=== PATIENT | female | born 1930 | race Caucasian/White ===

== ENCOUNTER → 2016-06-30 | Outpatient (CLI) | payer OTHER ==
[~2016-06-30] MED LIST: ASPCH81X PO; BENZ100C7 PO; CYAN100020 PO; DONE10TA12 PO; FURO-85 PO; GFNSR600 PO; HYDR-5688 PO; LEVO1TAB35 PO; LEVO88TA3 PO; PRD20 PO
[2016-06-30 12:41] LABS: HEMATOCRIT 43.9 % (37-47); MEAN CORPUSCULAR HEMOGLOBIN 30.9 pg (25-34); MEAN CORPUSCULAR HGB CONC 33.3 g/dl (32-36); MEAN PLATELET VOLUME 10.1 fL (7.4-10.4); PLATELET COUNT 297 K/uL (130-400); RED BLOOD COUNT 4.72 M/uL (4.2-5.4); WHITE BLOOD COUNT 15.45 K/uL (4.8-10.8)
[2016-06-30 12:59] LABS: ALT/SGPT 18 U/L (12-78); BLOOD UREA NITROGEN 15 mg/dl (7-18); BUN/CREATININE RATIO 19.4 (10-20); CALCIUM 9.5 mg/dl (8.5-10.1); CARBON DIOXIDE 30 mmol/L (21-32); CHLORIDE 107 mmol/L (98-107); CHOLESTEROL 217 mg/dl (0-200); CREATININE 0.79 mg/dl (0.60-1.20); GLUCOSE 89 mg/dl (70-99); POTASSIUM 4.3 mmol/L (3.5-5.1); SODIUM 142 mmol/L (136-145); TRIGLYCERIDES 107 mg/dl (0-150); VERY LOW DENSITY LIPOPROT CALC 21 mg/dl
[2016-06-30 13:10] LABS: ALB/GLOB RATIO 1.2 (0.9-2); ALKALINE PHOSPHATASE 85 U/L (45-117); AST/SGOT 19 U/L (15-37); CHOLESTEROL/HDL RATIO 3.6; HDL CHOLESTEROL 60 mg/dl; LDL CHOLESTEROL CALCULATED 136 mg/dl
[2016-06-30 14:10] LABS: BASO % 0.3 %; BASO ABS # 0.05 K/uL (0-0.2); COMPLETE YES; IG% 0.1 %; LYMPH % 65.1 %; LYMPH ABS # 10.06 K/uL (1.2-3.4); MONO % 4.9 %; NEUT % 27.6 %; SMUDGE CELLS PRESENT
== END | disposition home or self-care (01) ==
LOC: C.LABBFT 09:09
PROVIDERS: ATTEND Internal Medicine
DX: E53.8 Deficiency of other specified B group vitamins (principal); E78.5 Hyperlipidemia, unspecified; E03.9 Hypothyroidism, unspecified

== ENCOUNTER 2016-07-29 09:34 | Inpatient (IN) | payer OTHER ==
[~2016-07-29] VITALS: Ht 160 cm; Wt 71.2 kg
[~2016-07-29 09:34] MED LIST changes: -BENZ100C7 PO; -GFNSR600 PO; -LEVO1TAB35 PO; -PRD20 PO
[2016-07-29] MEDS ORDERED: ALBUT/IPRATROP 3MG/0.5MG NEB 3 ML VIAL INH STA (10:10)
[2016-07-29] MEDS ORDERED: METHYLPREDNISOLONE 125 MG VIAL IV STA (10:10)
[2016-07-29] MEDS ORDERED: LEVAQUIN 750MG / 150ML D5W IV STA (10:13)
[2016-07-29] MEDS ORDERED: SODIUM CHLORIDE 0.9% 1000ML 1,000 ML IV STA (10:13)
--- NOTE | 2016-07-29 10:24 | EMERGENCY ROOM VISIT NOTE ---
History Report prepared by Lexi: Emily York Under the Supervision of: Dr. Alba Bruno M.D. First contact with patient: 09:58 Chief Complaint: SHORTNESS OF BREATH Stated Complaint: SOB, COUGH, WEAKNESS Nursing Triage Summary: Pt son states patient has SOB, coughing, weakness and that pt had pneumonia recently. Cold started 1 1/2 weeks ago, but symptoms getting worse since Tuesday. History of Present Illness The patient is an 86 year old female who presents to the Emergency Room with complaints of persistent SOB starting 2 days ago. She has a cold 1.5 weeks ago which got better. Two days ago she began coughing and having SOB. She denies any fever. Her was sick with pneumonia last week. She does not wear oxygen at home. She denies any history of smoking. Source of History: patient Onset: 2 days ago Position: other (respiratory) Quality: other (SOB) Timing: other (persistent) Associated Symptoms: + cough, No fevers Review of Systems See HPI for pertinent positives & negatives. A total of 10 systems reviewed and were otherwise negative. Past Medical & Surgical Medical Problems: (1) Acute respiratory failure with hypoxia (2) Chronic lymphoid leukemia, disease Family History Non contributory secondary to age. Social History Smoking Status: Never Smoker Marital Status: Housing Status: lives with significant other Occupation Status: retired Current/Historical Medications Scheduled Aspirin (Aspirin Chewable), 81 MG PO HS Donepezil Hydrochloride (Aricept), 10 MG PO HS Furosemide (Lasix), 20 MG PO DAILY AFTER LUNCH Levothyroxine Sodium (Levothyroxine Sodium), 1 TAB PO QAM Scheduled PRN Hydrocodone/Acetaminophen 5MG/325MG ([place] 5MG/325MG), 1-2 TABLET PO q 6 hrs PRN for Pain Allergies Coded Allergies: NO KNOWN DRUG ALLERGIES (Verified Allergy, Unknown, , 07/29/16) Adhesives (Verified Adverse Reaction, Mild, SORE, 07/29/16) Physical Exam Vital Signs Date Time Temp Pulse Resp B/P Pulse Ox O2 Delivery O2 Flow Rate FiO2 07/29/16 11:00 96 21 130/54 96 Room Air 07/29/16 10:35 87 23 120/61 95 Nasal Cannula 3.0 07/29/16 09:59 90 07/29/16 09:52 Nasal Cannula 3.0 07/29/16 09:49 89 Room Air 07/29/16 09:49 82 24 115/78 98 Nasal Cannula 3.0 07/29/16 09:42 93 Room Air 07/29/16 09:39 36.9 93 18 122/72 93 Room Air Physical Exam Vital signs reviewed. General: Chronically ill-appearing, elderly, in no significant distress. HEENT: No scleral icterus, PERRLA, neck supple. Atraumatic. Cardiovascular: Regular rate and rhythm, no extra sounds. Pulmonary: Wheezing in both lung chang, crackles at bases, increased work of breathing, hypoxic, on nasal cannula, moist cough. Abdomen: Soft, nontender, nondistended, positive bowel sounds. Musculoskeletal: Atraumatic, no peripheral edema. Neurologic: Patient awake alert and oriented x 3, full strength in all 4 extremities. Cranial nerves 2 through 12 grossly intact. Skin: Warm, dry, no rash Medical Decision & Procedures ER Provider Diagnostic Interpretation: X-ray results as stated below per interpretation by me and the radiologist: SINGLE VIEW CHEST CLINICAL HISTORY: Wheezing. Pneumonia. FINDINGS: An AP, portable, upright chest radiograph is compared to study dated 01/24/2014 and correlated with chest CT dated 11/01/2012. The examination is degraded by portable technique, apical lordotic positioning, and patient rotation. The heart is enlarged and there is atherosclerotic calcification of the thoracic aorta. The pulmonary vasculature is noncongested. Chronic interstitial thickening is similar to previous. Patchy airspace consolidation is seen at the left lung base. There is no large pleural effusion. No pneumothorax is seen. The skeletal structures are osteopenic. Degenerative change is noted throughout the thoracic spine. Calcific tendinopathy is seen in both shoulders. A tiny linear metallic foreign body/clip is noted in the left axillary region. IMPRESSION: 1. There is patchy airspace consolidation at the left lung base. Cortical clinically for evidence of pneumonia/aspiration pneumonitis. Radiographic follow-up to resolution is recommended. 2. Cardiomegaly without radiographic evidence of congestive failure. Electronically signed by: Patel Rose M.D. 07/29/2016 10:31 AM Dictated Date/Time: 07/29/2016 10:29 AM Laboratory Results Test 07/29/16 10:00 07/29/16 10:23 07/29/16 10:32 07/29/16 11:00 Prothrombin Time 13.5 SECONDS (9.0-12.0) Prothromb Time International Ratio 1.3 (0.9-1.1) Activated Partial Thromboplast Time 34.8 SECONDS (21.0-31.0) Partial Thromboplastin Ratio 1.3 Total Bilirubin 0.8 mg/dl (0.2-1) Direct Bilirubin 0.1 mg/dl (0-0.2) Aspartate Amino Transf (AST/SGOT) 41 U/L (15-37) Alanine Aminotransferase (ALT/SGPT) 25 U/L (12-78) Alkaline Phosphatase 84 U/L (45-117) Total Protein 7.1 gm/dl (6.4-8.2) Albumin 3.4 gm/dl (3.4-5.0) Bedside Troponin I 0.110 ng/ml (0-0.045) Bedside Lactic Acid Venous 1.76 mmol/L (0.90-1.70) Influenza Type A (RT-PCR) Neg for Influ A (NEG) Influenza Type A Antigen Neg for Influ A (NEG) Influenza Type B Antigen Neg for Influ B (NEG) Influenza Type B (RT-PCR) Neg for Influ B (NEG) Laboratory results per my review. Medications Administered Medications (Trade) Dose Ordered Sig/Raoul Route Start Time Stop Time Status Last Admin Dose Admin Albuterol/ Ipratropium (Duoneb) 3 ml NOW STAT INH 07/29/16 10:10 07/29/16 10:13 DC 07/29/16 10:36 3 ML Methylprednisolone Sodium Succinate (Solu-Medrol IV) 125 mg NOW STAT IV 07/29/16 10:10 07/29/16 10:13 DC 07/29/16 10:37 125 MG Levofloxacin 750 mg 750 mg NOW STAT IV 07/29/16 10:13 07/29/16 10:14 DC 07/29/16 10:37 750 MG Sodium Chloride (Nss 1000ml) 1,000 ml @ 125 mls/hr Q8H STAT IV 07/29/16 10:13 07/29/16 15:29 DC 07/29/16 10:37 125 MLS/HR Piperacillin Sod/ Tazobactam Sod (Zosyn Iv) 4.5 gm NOW STAT IV 07/29/16 10:52 07/29/16 10:53 DC 07/29/16 11:19 4.5 GM Aspirin (Aspirin Chew) 324 mg NOW STAT PO 07/29/16 10:53 07/29/16 10:54 DC 07/29/16 11:12 324 MG But he can figure that out ECG Indication: SOB/dyspnea Rate (beats per minute): 86 Rhythm: normal sinus Findings: no acute ischemic change, left axis deviation, no ectopy ED Course 1008: Past medical records reviewed. The patient was evaluated in room B8. A complete history and physical examination was performed. 1010: Solu-Medrol IV 125 mg IV, Duoneb 3 ml INH. 1013: NSS 1000 ml @ 125 mls/hr IV, Levofloxacin 750 mg IV. 1052: Zosyn Iv 4.5 gm IV. 1053: Aspirin 324 mg PO. 1102: I reviewed the patient's case with Dr. Whatley, [facility] hospitalist. He will evaluate the patient for further management. 1110: Upon reevaluation, the patient is resting comfortably. I discussed laboratory and radiographic results with her. She verbalized agreement of the treatment plan. I spoke with Dr. Whatley of the [facility] Hospitalist Service. The patient will be evaluated for further management and care. Medical Decision Differential diagnosis: Etiologies such as infections, reactive airway disease, pneumonia, pneumothorax , COPD, CHF, cardiac ischemia, pulmonary embolism, musculoskeletal, gastrointestinal, as well as others were entertained. This patient was evaluated and appeared to be in no significant distress. IV access was obtained and laboratory work was drawn. Patient was placed on the cardiac technologist, given a DuoNeb treatment. Patient's laboratory work reveals a marked leukocytosis, elevated troponin. Patient's EKG reveals no acute ischemic change. Blood cultures were obtained and the patient was given IV Levaquin, IV Zosyn. Patient was given IV Solu-Medrol. Patient had some improvement in her symptoms and will be evaluated by the hospitalist service for further management. Consults Time Called: 1053 Consulting Physician: Dr. Whatley, [facility] hospitalist Returned Call: [phone] I reviewed the patient's case with him. He will evaluate the patient for further management. Impression Primary Impression: Pneumonia Additional Impressions: Hypoxia Elevated troponin Scribe Attestation The scribe's documentation has been prepared under my direction and personally reviewed by me in its entirety. I confirm that the note above accurately reflects all work, treatment, procedures, and medical decision making performed by me. Departure Information Dispostion Being Evaluated By Hospitalist Referrals Georgi Gregory M.D. (PCP) Patient Instructions [facility] Problem Qualifiers
[2016-07-29 10:28] LABS: HEMATOCRIT 45.3 % (37-47); MEAN CELL VOLUME 92.8 fL (80-100); MEAN CORPUSCULAR HEMOGLOBIN 31.6 pg (25-34); MEAN PLATELET VOLUME 10.1 fL (7.4-10.4); PLATELET COUNT 226 K/uL (130-400); RED BLOOD COUNT 4.88 M/uL (4.2-5.4); WHITE BLOOD COUNT 25.63 K/uL (4.8-10.8)
--- NOTE | 2016-07-29 10:32 | DIAGNOSTIC IMAGING REPORT ---
SINGLE VIEW CHEST CLINICAL HISTORY: Wheezing. Pneumonia. FINDINGS: An AP, portable, upright chest radiograph is compared to study dated 01/24/2014 and correlated with chest CT dated 11/01/2012. The examination is degraded by portable technique, apical lordotic positioning, and patient rotation. The heart is enlarged and there is atherosclerotic calcification of the thoracic aorta. The pulmonary vasculature is noncongested. Chronic interstitial thickening is similar to previous. Patchy airspace consolidation is seen at the left lung base. There is no large pleural effusion. No pneumothorax is seen. The skeletal structures are osteopenic. Degenerative change is noted throughout the thoracic spine. Calcific tendinopathy is seen in both shoulders. A tiny linear metallic foreign body/clip is noted in the left axillary region. IMPRESSION: 1. There is patchy airspace consolidation at the left lung base. Cortical clinically for evidence of pneumonia/aspiration pneumonitis. Radiographic follow-up to resolution is recommended. 2. Cardiomegaly without radiographic evidence of congestive failure. Electronically signed by: Patel Rose M.D. 07/29/2016 10:31 AM Dictated Date/Time: 07/29/2016 10:29 AM
[2016-07-29 10:48] LABS: ALT/SGPT 25 U/L (12-78); BLOOD UREA NITROGEN 19 mg/dl (7-18); BUN/CREATININE RATIO 18.6 (10-20); CARBON DIOXIDE 27 mmol/L (21-32); CHLORIDE 103 mmol/L (98-107); GLUCOSE 140 mg/dl (70-99); SODIUM 139 mmol/L (136-145)
[2016-07-29 10:51] LABS: ALKALINE PHOSPHATASE 84 U/L (45-117); AST/SGOT 41 U/L (15-37); CALCIUM 9.3 mg/dl (8.5-10.1)
[2016-07-29] MEDS ORDERED: PIPERACILLIN/TAZOBACTAM 4.5 GM/100ML D5W IV STA (10:52)
[2016-07-29] MEDS ORDERED: ASPIRIN 81 MG CHEW PO STA (10:53)
[2016-07-29 10:57] LABS: BASO % 0.2 %; BASO ABS # 0.04 K/uL (0-0.2); COMPLETE YES; IG% 0.6 %; LYMPH % 27.2 %; LYMPH ABS # 6.98 K/uL (1.2-3.4); MONO % 5.9 %; NEUT % 66.1 %
--- NOTE | 2016-07-29 11:40 | History and Physical ---
History & Physical Date & Time of Service: Jul 29, 2016 at 11:13 Chief Complaint: Sob, Cough, Weakness Primary Care Physician: Georgi Gregory M.D. History of Present Illness Source: patient, family 86yo female with h/o CLL, mild dementia, and acquired hypothyroidism s/p thyroidectomy who presents with 1-2 weeks of URI symptoms followed by the development of dyspnea in the last 48 hours. was recently sick with pneumonia and required hospitalization at [facility] last weekend. Her cough is only occasionally productive of yellow sputum. She says multiple times during the visit "I'm just so weak." Has had nausea in the last 24 hours along with poor appetite for several days. She denies any h/o asthma, COPD, or other chronic lung disease. Denies any h/o dysphagia. In the ER she received IV zosyn and levaquin for a LLL pneumonia. Also received IV solumedrol 125mg x 1 along with duoneb x 1. Past Medical/Surgical History PMH: 1. acquired hypothyroidism 2. CLL 3. dementia PSH: 1. hysterectomy 2. thyroidectomy 3. lumpectomy for breast cancer 4. hip replacement - left Family History mother - of thyroid disease in her 40s father - "martinez" - in his 70s (thus, CHF? 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)) Immunizations History of Influenza Vaccine: Yes History of Tetanus Vaccine?: Yes History of Pneumococcal: Yes History of Hepatitis B Vaccine: No Multi-Drug Resistant Organisms History of MDRO: No Allergies Coded Allergies: NO KNOWN DRUG ALLERGIES (Verified Allergy, Unknown, , 07/29/16) Adhesives (Unverified Adverse Reaction, Mild, SORE, 07/29/16) Home Medications Scheduled Aspirin (Aspirin Chewable), 81 MG PO HS Donepezil Hydrochloride (Aricept), 10 MG PO HS Furosemide (Lasix), 20 MG PO DAILY AFTER LUNCH Levothyroxine Sodium (Levothyroxine Sodium), 1 TAB PO QAM Scheduled PRN Hydrocodone/Acetaminophen 5MG/325MG ([place] 5MG/325MG), 1-2 TABLET PO q 6 hrs PRN for Pain Review of Systems Constitutional: + fatigue, + weakness, No chills, No fever, No weight loss Eyes: No discharge ENT: + nasal symptoms, No sore throat, No trouble swallowing Respiratory: + cough, + dyspnea at rest, + dyspnea on exertion, + shortness of breath, + sputum, + wheezing, No hemoptysis Cardiovascular: No chest pain, No edema, No orthopnea Abdomen: + nausea, No GI bleeding, No constipation, No diarrhea, No pain, No vomiting Musculoskeletal: No muscle pain Genitourinary - Female: No dysuria Neurologic: + memory loss, No balance problems Psychiatric: No anxiety, No depression symptoms Endocrine: + fatigue Hematologic / Lymphatic: No abnormal bleeding/bruising Integumentary: No rash Physical Exam Vital Signs Date Time Temp Pulse Resp B/P Pulse Ox O2 Delivery O2 Flow Rate FiO2 07/29/16 10:35 87 23 120/61 95 Nasal Cannula 3.0 07/29/16 09:59 90 07/29/16 09:52 Nasal Cannula 3.0 07/29/16 09:49 89 Room Air 07/29/16 09:49 82 24 115/78 98 Nasal Cannula 3.0 07/29/16 09:42 93 Room Air 07/29/16 09:39 36.9 93 18 122/72 93 Room Air General Appearance: no apparent distress, + thin, + pertinent finding (coughing ) Head: normocephalic, atraumatic Eyes: normal inspection, PERRL (pupils 1-2mm b/l ) ENT: + pharyngeal erythema, + pertinent finding (moist mucous membranes) Neck: supple, no adenopathy, + JVD (about 6-8cm), + pertinent finding (thyroid ectomy scar anterior neck) Respiratory/Chest: no respiratory distress, no accessory muscle use, + crackles (fine, both bases but especially left base), + wheezing Cardiovascular: regular rate, rhythm, no gallop, no murmur, normal peripheral pulses Abdomen/GI: normal bowel sounds, non tender, soft, no organomegaly Back: normal inspection Extremities/Musculoskelatal: no pedal edema Neurologic/Psych: no motor/sensory deficits, alert, normal reflexes, oriented x 3 Skin: no rash Lymphatic: no adenopathy (no cervical LAD) Diagnostics Laboratory Results Results Past 24 Hours Test 07/29/16 10:00 07/29/16 10:23 07/29/16 10:32 07/29/16 11:00 Range/Units White Blood Count 25.63 4.8-10.8 K/uL Red Blood Count 4.88 4.2-5.4 M/uL Hemoglobin 15.4 12.0-16.0 g/dL Hematocrit 45.3 37-47 % Mean Corpuscular Volume 92.8 80-100 fL Mean Corpuscular Hemoglobin 31.6 25-34 pg Mean Corpuscular Hemoglobin Concent 34.0 32-36 g/dl Platelet Count 226 130-400 K/uL Mean Platelet Volume 10.1 7.4-10.4 fL Neutrophils (%) (Auto) 66.1 % Lymphocytes (%) (Auto) 27.2 % Monocytes (%) (Auto) 5.9 % Eosinophils (%) (Auto) 0.0 % Basophils (%) (Auto) 0.2 % Neutrophils # (Auto) 16.95 1.4-6.5 K/uL Lymphocytes # (Auto) 6.98 1.2-3.4 K/uL Monocytes # (Auto) 1.50 0.11-0.59 K/uL Eosinophils # (Auto) 0.01 0-0.5 K/uL Basophils # (Auto) 0.04 0-0.2 K/uL RDW Standard Deviation 48.0 36.4-46.3 fL RDW Coefficient of Variation 14.1 11.5-14.5 % Immature Granulocyte % (Auto) 0.6 % Immature Granulocyte # (Auto) 0.15 0.00-0.02 K/uL Sodium Level 139 136-145 mmol/L Potassium Level 4.0 3.5-5.1 mmol/L Chloride Level 103 98-107 mmol/L Carbon Dioxide Level 27 21-32 mmol/L Anion Gap 9.0 3-11 mmol/L Blood Urea Nitrogen 19 7-18 mg/dl Creatinine 1.00 0.60-1.20 mg/dl Estimated GFR () 59.1 Estimated GFR (Non- 51.0 BUN/Creatinine Ratio 18.6 10-20 Random Glucose 140 70-99 mg/dl Calcium Level 9.3 8.5-10.1 mg/dl Magnesium Level 2.0 1.8-2.4 mg/dl Total Bilirubin 0.8 0.2-1 mg/dl Direct Bilirubin 0.1 0-0.2 mg/dl Aspartate Amino Transf (AST/SGOT) 41 15-37 U/L Alanine Aminotransferase (ALT/SGPT) 25 12-78 U/L Alkaline Phosphatase 84 45-117 U/L Total Protein 7.1 6.4-8.2 gm/dl Albumin 3.4 3.4-5.0 gm/dl Bedside Troponin I 0.110 0-0.045 ng/ml Bedside Lactic Acid Venous 1.76 0.90-1.70 mmol/L Microbiology Results 07/29/16 Blood Culture, Received Pending 07/29/16 Blood Culture, Amada Batch Pending 07/29/16 Blood Culture, Amada Batch Pending 07/29/16 Blood Culture, Received Pending Diagnostic Radiology Chest x-ray: IMPRESSION: 1. There is patchy airspace consolidation at the left lung base. Cortical clinically for evidence of pneumonia/aspiration pneumonitis. Radiographic follow-up to resolution is recommended. 2. Cardiomegaly without radiographic evidence of congestive failure. EKG EKG - NSR, left axis deviation, no ST changes (my reading) Impression Assessment and Plan 86yo female with acute hypoxic respiratory failure 2nd to acute bronchitis and LLL pneumonia. 1. LLL community-acquired pneumonia - both she and her became ill about the same time last week. She has not been hospitalized in the last 3 months. Will treat this as LLL CAP with levaquin IV. Follow blood cultures. If any worsening or failure to improve then broaden the coverage for gram negatives, etc. NO history of dysphagia to suggest aspiration and thus defer on coverage for anaerobes at this time. 2. acute bronchitis - will cont IV steroids with solu-medrol 40mg q12h. Duonebs q6h. Incentive spirometry. Mucinex. O2 as needed. 3. JVD on physical exam - despite the JVD she otherwise does not appear volume- overloaded. CXR also w/o pulmonary edema. Last echo was in the clinic in 2013 showing EF 55-60%, grade 2 diastolic dysfunction, and moderate pulmonary HTN. She received IVF in the ER. Will defer on additional fluids at this time. Watch volume status carefully and institute IV lasix in hugo of her normal PO lasix if necessary. 4. hypothyroidism - TSH last month was normal/compensated. Cont same dose of synthroid for now. 5. dementia - cont aricept. She may develop hospital psychosis/encephalopathy while here; follow carefully for such. 6. CLL - a review of her CBCs going back several years shows that her baseline WBC count is typically in the mid-teens. The acute elevation is likely from # 1. Repeat CBC in am for stability. She has never needed treatment to date for the CLL. 7. DVT proph - heparin BID. 8. +troponin - likely myocardial demand ischemia in the setting of #1 above. Doubt true ACS. EKG w/o ischemic changes, and she has had no ischemic symptoms at home. Serial troponins for stability. Place on telemetry. 9. PT, OT consults. 10. modestly elevated AST - simply repeat in 48 hours. family updated at bedside code status - level 1 full code; however, she would not want prolonged intubation/mech ventilation/etc Level of Care Telemetry Advanced Directives Existing Advance Directive: No Existing Living Will: No Resuscitation Status FULL RESUSCITATION VTE Prophylaxis Risk Level: Moderate Given or contraindicated: Unfractionated heparin SQ Note total time about 60 minutes Additional Copies To Georgi Gregory M.D.
[2016-07-29] MEDS ORDERED: ONDANSETRON INJ 2 MG/ML 2 ML VIAL IV PRN (11:45)
[2016-07-29] MEDS ORDERED: MAGNESIUM HYDROXIDE SUSP 30 ML UDC PO PRN (11:45)
[2016-07-29] MEDS ORDERED: ALUMINUM/MAGNESIUM/SIMETH (MAALOX MAX) 30 ML UDC PO PRN (11:45)
[2016-07-29] MEDS ORDERED: POLYETHYLENE (MIRALAX) 17 GM PACK PO PRN (11:45)
[2016-07-29] MEDS ORDERED: ACETAMINOPHEN 325 MG TAB PO PRN (11:45)
[2016-07-29 13:27] LABS: INFLUENZA A PCR Neg for Influ A (NEG); INFLUENZA B PCR Neg for Influ B (NEG)
[2016-07-29 14:44] LABS: INR 1.3 (0.9-1.1); PARTIAL THROMBOPLASTIN RATIO 1.3; PROTHROMBIN TIME (PATIENT) 13.5 SECONDS (9.0-12.0)
[2016-07-29] MEDS ORDERED: PATIENT'S HEIGHT AND/OR WEIGHT NEEDED SCH (15:00)
[2016-07-29 15:04] VITALS: BP 150/74; PULSE 91; TEMP 36.7; O2SAT 96
[2016-07-29 15:05] VITALS: O2SAT 96
[2016-07-29 15:09] VITALS: BP 150/74; PULSE 91; TEMP 36.7; BMI 40.8
[2016-07-29 15:27] VITALS: Ht 160 cm; Wt 71.2 kg
[2016-07-29] MEDS ORDERED: LEVOFLOXACIN CONSULT ACTIVE PRN (16:00)
[2016-07-29] MEDS ORDERED: FUROSEMIDE 20 MG TAB PO SCH (16:00)
[2016-07-29] MEDS: GUAIFENESIN 600 MG TABCR PO SCH ×2 (16:02→20:28)
[2016-07-29 19:29] VITALS: PULSE 79; O2SAT 92
[2016-07-29] MEDS: ALBUT/IPRATROP 3MG/0.5MG NEB 3 ML VIAL INH SCH ×2 (19:29→23:35)
[2016-07-29 20:03] VITALS: BP 116/67; PULSE 77; TEMP 36.5; O2SAT 98
[2016-07-29] MEDS: BENZONATATE 100MG CAP PO SCH (20:28)
[2016-07-29] MEDS: DONEPEZIL HCL 10 MG TAB PO SCH (20:28)
[2016-07-29] MEDS: METHYLPREDNISOLONE IV 40 MG in SYRINGE 0 ML IV SCH (20:30)
[2016-07-29] MEDS: HEPARIN SOD 5000 UNIT/0.5 ML CARP SQ SCH (20:30)
[2016-07-29 23:36] VITALS: PULSE 77; O2SAT 98
[2016-07-30] VITALS (14 sets, daily range): BP systolic 108–124; BP diastolic 55–70; PULSE 66–173; TEMP 36.4–36.9; O2SAT 92–100
[2016-07-30] MEDS: LEVOTHYROXINE 88 MCG TAB PO SCH (06:02)
[2016-07-30] MEDS: ALBUT/IPRATROP 3MG/0.5MG NEB 3 ML VIAL INH SCH ×2 (07:29→11:19)
[2016-07-30 07:48] LABS: HEMATOCRIT 40.4 % (37-47); MEAN CELL VOLUME 91.4 fL (80-100); MEAN CORPUSCULAR HEMOGLOBIN 31.4 pg (25-34); MEAN CORPUSCULAR HGB CONC 34.4 g/dl (32-36); MEAN PLATELET VOLUME 10.5 fL (7.4-10.4); PLATELET COUNT 194 K/uL (130-400); RED BLOOD COUNT 4.42 M/uL (4.2-5.4); WHITE BLOOD COUNT 24.72 K/uL (4.8-10.8)
[2016-07-30] MEDS: FUROSEMIDE 20 MG TAB PO SCH (08:20)
[2016-07-30] MEDS: BENZONATATE 100MG CAP PO SCH ×3 (08:20→21:26)
[2016-07-30] MEDS: GUAIFENESIN 600 MG TABCR PO SCH ×2 (08:21→21:26)
[2016-07-30] MEDS: HEPARIN SOD 5000 UNIT/0.5 ML CARP SQ SCH ×2 (08:23→21:27)
[2016-07-30 08:35] LABS: BUN/CREATININE RATIO 23.7 (10-20); CREATININE 0.87 mg/dl (0.60-1.20); POTASSIUM 3.4 mmol/L (3.5-5.1)
[2016-07-30 08:50] LABS: CALCIUM 9.8 mg/dl (8.5-10.1)
[2016-07-30 09:44] LABS: BASO ABS # 0.01 K/uL (0-0.2); COMPLETE YES; ECHINOCYTES 1+; IG% 0.2 %; LYMPH % 32.2 %; LYMPH ABS # 7.96 K/uL (1.2-3.4); MONO % 2.8 %; NEUT % 64.8 %; SMUDGE CELLS PRESENT
[2016-07-30] MEDS: METHYLPREDNISOLONE IV 40 MG in SYRINGE 0 ML IV SCH ×2 (10:10→21:29)
[2016-07-30] MEDS ORDERED: POTASSIUM CHLORIDE 20 MEQ TABCR PO STA (10:16)
--- NOTE | 2016-07-30 11:28 | Hospitalist Progress Note ---
Hospitalist Progress Note Date of Service Jul 30, 2016. (Vannessa Baker PA-C) Subjective Pt evaluation today including: conversation w/ patient, physical exam Patient reports feeling better. Her shortness of breath is better. She is feeling stronger. No fever or chills. Denies any chest pain or pressure. Appetite is poor, but she typically is not hungry in the mornings. She did not sleep well last night. Additional Comments: 6 system review negative. Please see pertinent positives in the history of present illness section. (Vannessa Baker PA-C) Objective Vital Signs Date Time Temp Pulse Resp B/P Pulse Ox O2 Delivery O2 Flow Rate FiO2 07/30/16 08:00 Room Air 07/30/16 07:30 77 16 98 Room Air 07/30/16 07:14 36.8 07/30/16 07:14 36.8 66 16 112/70 95 2.0 07/30/16 04:00 Nasal Cannula 2.0 07/30/16 04:00 36.4 85 18 121/60 95 2.0 07/30/16 00:17 36.7 78 16 108/64 96 2.0 07/30/16 00:00 Nasal Cannula 2.0 07/29/16 23:36 77 16 98 Nasal Cannula 2.0 07/29/16 20:03 36.5 77 16 116/67 98 2.5 07/29/16 20:00 Nasal Cannula 2.0 07/29/16 19:29 79 16 92 Nasal Cannula 2.0 07/29/16 16:00 Nasal Cannula 2.0 07/29/16 15:09 36.7 91 22 150/74 07/29/16 15:05 96 Nasal Cannula 2.0 07/29/16 15:04 36.7 91 22 150/74 96 Nasal Cannula 2.0 07/29/16 14:02 81 15 111/49 96 07/29/16 13:15 88 16 119/55 96 Nasal Cannula 2.0 07/29/16 12:30 61 21 102/51 95 Nasal Cannula 3.0 (Vannessa Baker PA-C) Physical Exam General Appearance: + mild distress ENT: + pertinent finding (oral mucosa dry) Neck: + JVD (mild JVD) Respiratory/Chest: + pertinent finding (crackles at the left base. No wheezing.) Cardiovascular: regular rate, rhythm, no murmur Abdomen: normal bowel sounds, non tender, soft Extremities: non-tender, no pedal edema Neurologic/Psychiatric: no motor/sensory deficits, oriented x 3 Skin: warm/dry (Vannessa Baker, INDRA) Laboratory Results 07/30/16 06:32 Red Blood Count 4.42, Mean Corpuscular Volume 91.4, Mean Corpuscular Hemoglobin 31.4, Mean Corpuscular Hemoglobin Concent 34.4, Mean Platelet Volume 10.5, Neutrophils (%) (Auto) 64.8, Lymphocytes (%) (Auto) 32.2, Monocytes (%) (Auto) 2.8, Eosinophils (%) (Auto) 0.0, Basophils (%) (Auto) 0.0, Neutrophils # (Auto) 16.01, Lymphocytes # (Auto) 7.96, Monocytes # (Auto) 0.69, Eosinophils # (Auto) 0.00, Basophils # (Auto) 0.01 07/30/16 06:32 Test 07/29/16 22:20 07/30/16 06:32 Troponin I 0.055 ng/ml (0-0.045) White Blood Count 24.72 K/uL (4.8-10.8) Red Blood Count 4.42 M/uL (4.2-5.4) Hemoglobin 13.9 g/dL (12.0-16.0) Hematocrit 40.4 % (37-47) Mean Corpuscular Volume 91.4 fL (80-100) Mean Corpuscular Hemoglobin 31.4 pg (25-34) Mean Corpuscular Hemoglobin Concent 34.4 g/dl (32-36) Platelet Count 194 K/uL (130-400) Mean Platelet Volume 10.5 fL (7.4-10.4) Neutrophils (%) (Auto) 64.8 % Lymphocytes (%) (Auto) 32.2 % Monocytes (%) (Auto) 2.8 % Eosinophils (%) (Auto) 0.0 % Basophils (%) (Auto) 0.0 % Neutrophils # (Auto) 16.01 K/uL (1.4-6.5) Lymphocytes # (Auto) 7.96 K/uL (1.2-3.4) Monocytes # (Auto) 0.69 K/uL (0.11-0.59) Eosinophils # (Auto) 0.00 K/uL (0-0.5) Basophils # (Auto) 0.01 K/uL (0-0.2) RDW Standard Deviation 46.6 fL (36.4-46.3) RDW Coefficient of Variation 13.9 % (11.5-14.5) Immature Granulocyte % (Auto) 0.2 % Immature Granulocyte # (Auto) 0.05 K/uL (0.00-0.02) Smudge Cells PRESENT Echinocytes 1+ Anion Gap 10.0 mmol/L (3-11) Est Creatinine Clear Calc Drug Dose 32.4 ml/min Estimated GFR () 69.9 Estimated GFR (Non- 60.3 BUN/Creatinine Ratio 23.7 (10-20) Calcium Level 9.8 mg/dl (8.5-10.1) Last 24 Hours Test 07/29/16 16:37 07/29/16 22:20 07/30/16 06:32 Troponin I 0.096 ng/ml 0.055 ng/ml White Blood Count 24.72 K/uL Red Blood Count 4.42 M/uL Hemoglobin 13.9 g/dL Hematocrit 40.4 % Mean Corpuscular Volume 91.4 fL Mean Corpuscular Hemoglobin 31.4 pg Mean Corpuscular Hemoglobin Concent 34.4 g/dl Platelet Count 194 K/uL Mean Platelet Volume 10.5 fL Neutrophils (%) (Auto) 64.8 % Lymphocytes (%) (Auto) 32.2 % Monocytes (%) (Auto) 2.8 % Eosinophils (%) (Auto) 0.0 % Basophils (%) (Auto) 0.0 % Neutrophils # (Auto) 16.01 K/uL Lymphocytes # (Auto) 7.96 K/uL Monocytes # (Auto) 0.69 K/uL Eosinophils # (Auto) 0.00 K/uL Basophils # (Auto) 0.01 K/uL RDW Standard Deviation 46.6 fL RDW Coefficient of Variation 13.9 % Immature Granulocyte % (Auto) 0.2 % Immature Granulocyte # (Auto) 0.05 K/uL Smudge Cells PRESENT Echinocytes 1+ Sodium Level 140 mmol/L Potassium Level 3.4 mmol/L Chloride Level 104 mmol/L Carbon Dioxide Level 26 mmol/L Anion Gap 10.0 mmol/L Blood Urea Nitrogen 21 mg/dl Creatinine 0.87 mg/dl Est Creatinine Clear Calc Drug Dose 32.4 ml/min Estimated GFR () 69.9 Estimated GFR (Non- 60.3 BUN/Creatinine Ratio 23.7 Random Glucose 166 mg/dl Calcium Level 9.8 mg/dl (Vannessa Baker, RODRIGO-C) Assessment and Plan 86yo female with acute hypoxic respiratory failure 2nd to acute bronchitis and LLL pneumonia. LLL community-acquired pneumonia -Continue levaquin IV. acute bronchitis -Continue solu-medrol 40mg q12h. Duonebs q6h. Incentive spirometry. Mucinex. O2 as needed. Elevated Trop-trending down. Asymptomatic -Patient did have a run of tachycardia. Repeat EKGs shows sinus rhythm -Continue telemetry monitoring for now hypothyroidism - TSH last month was normal -Cont Synthroid. dementia -cont aricept. CLL-WBCs elevated secondary to above/steroids Baseline 14-16. -follow CBC DVT proph -heparin BID. CODE STATUS -LEVEL I FULL CODE DISPO -PT/OT eval standing. Likely DC home. Patient lives at home with her . She ambulates without difficulty. She does have family close by if she needs help. (Vannessa Baker, PA-C) Reviewed: Pt Seen/Exam by Me (Lulú Don MD) History Physician Matrix Supervisor Supervision Note: I interviewed and examined the patient. Discussed with RODRIGO Baker and agree with findings and plan as documented in the note. Any exceptions or clarifications are listed here: Patient had episode of rapid atrial fibrillation with heart rates in the 170s today. She was completely asymptomatic and her blood pressure was stable. She was given IV Lopressor 5 mg IV 1 and her heart rate came down to 140s. Repeat ECG showed atrial fibrillation. She was started on a diltiazem drip and shortly afterwards, she converted to normal sinus rhythm. She feels much better than when she came in. Still coughing but improved. Case discussed with distance education director. VSS NAD, AAOx3 RRR no mgr Crackles and rhonchi at the left base and middle left lung field Abdomen soft nontender nondistended positive bowel sounds Extremities no edema 86-year-old female here with acute hypoxemic respiratory failure and community- acquired pneumonia, now with rapid atrial fibrillation. -Continue supplemental oxygen -Continue Levaquin and bronchodilators -Appreciate cardiology input-we'll hold off on starting any by mouth AV nila blockers at this time and continues by mouth Cardizem on a when necessary basis if she returns to rapid atrial fibrillation -No anticoagulation at this time as this could just be secondary to pneumonia -Replace electrolytes as needed Documented By: Lulú Don (Lulú Don MD)
[2016-07-30] MEDS ORDERED: METOPROLOL TARTRATE 1 MG/ML VIAL IV STA (12:20)
[2016-07-30] MEDS ORDERED: METOPROLOL TARTRATE 1 MG/ML VIAL ONE (12:24)
[2016-07-30] MEDS ORDERED: DILTIAZEM BOLUS / DRIP IV STA (12:37)
[2016-07-30] MEDS ORDERED: LEVALBUTEROL/IPRATROPIUM NEB INH SCH (13:30)
[2016-07-30] MEDS ORDERED: DILTIAZEM HCL INJ 125 MG in DEXTROSE 5% 100ML IV PRN (13:30)
[2016-07-30] MEDS ORDERED: PATIENT'S HEIGHT NEEDED SCH (13:45)
--- NOTE | 2016-07-30 13:47 | Progress Note ---
Progress Note Date of Service Jul 30, 2016. (Vannessa Baker PA-C) Progress Note Called by RN at 12:10 PM patient was tachycardic in the 150s to 170s. BP stable. Assessment the bedside at 12:15 PM. The patient is resting comfortably in bed. She denies any chest pain or pressure. She does admit to feeling like her heart is beating fast. She denies any shortness of breath. She was given 1 dose of Lopressor 5 mg IV. This decreased her rate into the 130s to 140s. EKG obtained and reveals rapid A. fib Begin Cardizem drip. No bolus. Trend cardiac enzymes Cardiology consult. Dr. Steward aware Check echo Transfer [address] Will await cardiology input for heparin drip. Dr. Don aware of situation and plan (Vannessa Baker, PAZafar)
[2016-07-30] MEDS: IPRATROPIUM BROMIDE NEB SOLN 0.02% 2.5 ML VIAL INH SCH (17:45)
[2016-07-30] MEDS: LEVALBUTEROL 1.25MG/0.5ML NEB INH SCH (18:45)
[2016-07-30 20:21] LABS: CKMB/CK RATIO 2.7 (0-3.0)
[2016-07-30] MEDS: DONEPEZIL HCL 10 MG TAB PO SCH (21:25)
[2016-07-30] MEDS: ASPIRIN 81 MG ECTAB PO SCH (21:25)
[2016-07-31] VITALS (9 sets, daily range): BP systolic 101–132; BP diastolic 51–77; PULSE 79–102; TEMP 36.4–36.7; O2SAT 92–96
[2016-07-31 01:32] LABS: CKMB/CK RATIO 2.5 (0-3.0)
[2016-07-31] MEDS: LEVALBUTEROL 1.25MG/0.5ML NEB INH SCH ×4 (02:28→20:05)
[2016-07-31] MEDS: IPRATROPIUM BROMIDE NEB SOLN 0.02% 2.5 ML VIAL INH SCH ×4 (02:28→20:05)
--- NOTE | 2016-07-31 03:57 | CARDIOLOGY CONSULTATION ---
DATE OF CONSULTATION: 07/30/2016 REFERRING PHYSICIAN: Lulú Don MD CHIEF COMPLAINT: Atrial fibrillation. HISTORY OF PRESENT ILLNESS: Ms. Rachel Daniels is an 86-year-old woman who has had a known history of atrial fibrillation who is currently admitted to [facility] for treatment of the pneumonia. The patient initially presented with upper respiratory type symptoms and productive cough. She had significant weakness and nausea as well as anorexia for several days leading up to her admission. She was noted to have a chest x-ray consistent with left lower lobe pneumonia. This afternoon, the patient was noted on telemetry to have developed atrial fibrillation with rapid ventricular rates and was transferred to telemetry. The patient does not recall any abnormal sensations during that period of time. She does not report any worsening of her breathing or chest pain. She had no symptoms of chest or palpitation. She had no sensation of a rapid heartbeat. She generally speaking is an active individual who is able to perform routine activities without significant limitation. She denies any outpatient episodes of tachycardia or palpitation. She is not aware of any recent chest pain either at rest or with physical exertion. She generally speaking does not have symptoms of dizziness, lightheadedness and cannot recall ever having a syncopal episode. PAST MEDICAL HISTORY: Significant for mild dementia, history of chronic lymphocytic leukemia, mitral regurgitation, diverticulosis, hearing loss, hyperlipidemia, hypothyroidism, thyroid cancer, and pulmonary hypertension. PAST SURGICAL HISTORY: Significant for a lumpectomy of the breast, hip surgery, thyroidectomy and hysterectomy with oophorectomy. FAMILY HISTORY: Noncontributory given her advanced age, no premature coronary disease. SOCIAL HISTORY: The patient is a retired financial service rep, currently lives with her locally, is a lifelong nonsmoker and denies significant alcohol use. REVIEW OF SYSTEMS: A complete 10-system review of systems was performed and the pertinent positives noted in the history of present illness and the remainder of the review of systems was negative. She did have some constitutional symptoms as mentioned earlier such as subjective fevers and a cough. PHYSICAL EXAMINATION: GENERAL: The patient was in no acute distress. She was alert and oriented. The mood and affect appeared normal. She answered all questions appropriately. VITAL SIGNS: Include blood pressure 124/68 with a pulse of 86. HEENT: Her sclerae are anicteric. Pupils are equal, reactive to light and accommodation. Extraocular movements were intact. Palpation of submandibular region did not reveal any significant lymphadenopathy. The carotids are palpable bilaterally. There are no bruits on auscultation. I did not appreciate any jugular venous distention. Thyroid is not enlarged. She did have a thyroid scar. LUNGS: Auscultation of her lungs revealed the apices to be clear with the worrisome upper airway rhonchorous breathe sounds. There was no expiratory wheezing. She had normal inspiratory effort without use of accessory muscles. HEART: Revealed her to be in a regular rhythm. There was a very soft systolic ejection murmur. S1, S2, otherwise appeared normal. The PMI was not markedly displaced on palpation. ABDOMEN: Soft and nontender. EXTREMITIES: Evaluation both wrists revealed radial pulses that were equal in intensity. There is no evidence of cyanosis or clubbing. Evaluation of the lower extremities revealed some very mild peripheral edema. I did not appreciate any rashes on examination today. LABORATORY STUDIES: Obtained today included a white cell count of 24.7, hemoglobin of 13.9 and platelet count of 194. Sodium is 140, potassium is 3.4, BUN was 21, and creatinine was 0.8. Serial cardiac biomarkers included a troponin of 0.09 yesterday and 0.05 on yesterday evening. The patient did have an outpatient echocardiogram performed in December 2013 which revealed preserved left ventricular systolic function with stage II diastolic dysfunction. She had mild mitral regurgitation and evidence of pulmonary hypertension. ASSESSMENT AND PLAN: 1. Atrial fibrillation. The patient certainly has several risk factors for atrial fibrillation including history of valvular heart disease and advanced age. It is uncommon to see arrhythmias of this nature in the setting of acute lung infection and hospitalization. She spontaneously converted and may or may not have additional episodes of atrial fibrillation. She had no symptoms related to this event though it is unclear whether she has had other episodes of atrial fibrillation on an outpatient basis. She does report keeping track of her pulse on occasion, and has not noticed any high heart rates. Given the acute admission and her pulmonary infection, I think at this point we can simply monitor her for recurrence. I would not recommend overt anticoagulation based on this one episode during an acute illness. It becomes obvious that she has recurrent episodes or we noticed once discharge elevated heart rate at times and systemic anticoagulation would be warranted given her other risk factors. I would also not advocate empiric rate control due to relatively low blood pressures currently. Once again, in the absence of recurrent or evidence of additional episodes of atrial fibrillation, there is real role for prophylaxis diltiazem or beta blockers. 2. Mitral regurgitation, this was mild previously and will be reevaluated during this admission with echocardiography. 3. Elevated cardiac biomarkers. The patient had no symptoms of chest discomfort. This is likely reactive in nature due to her acute illness. She likely has an element of fixed coronary disease given her advanced age and other risk factors. In the absence of symptoms consistent with an acute coronary syndrome, I would not advocate any additional biomarkers testing or cardiac evaluation. FINAL RECOMMENDATIONS: 1. No additional therapy at this point in the absence of recurrent episodes. 2. Echocardiogram.
[2016-07-31] MEDS: LEVOTHYROXINE 88 MCG TAB PO SCH (05:38)
[2016-07-31 07:17] LABS: HEMATOCRIT 41.8 % (37-47); MEAN CELL VOLUME 92.3 fL (80-100); MEAN CORPUSCULAR HEMOGLOBIN 31.3 pg (25-34); MEAN PLATELET VOLUME 10.8 fL (7.4-10.4); PLATELET COUNT 227 K/uL (130-400); RED BLOOD COUNT 4.53 M/uL (4.2-5.4)
[2016-07-31 07:55] LABS: BUN/CREATININE RATIO 37.4 (10-20); CALCIUM 9.3 mg/dl (8.5-10.1); CKMB/CK RATIO 2.9 (0-3.0); CREATININE 0.78 mg/dl (0.60-1.20); MAGNESIUM 2.7 mg/dl (1.8-2.4); POTASSIUM 4.3 mmol/L (3.5-5.1)
[2016-07-31 08:10] LABS: BASO % 0.1 %; BASO ABS # 0.02 K/uL (0-0.2); COMPLETE YES; IG% 0.4 %; LYMPH % 35.8 %; LYMPH ABS # 9.12 K/uL (1.2-3.4); MONO % 2.3 %; NEUT % 61.4 %; SMUDGE CELLS PRESENT
[2016-07-31] MEDS: GUAIFENESIN 600 MG TABCR PO SCH ×2 (08:51→20:20)
[2016-07-31] MEDS: FUROSEMIDE 20 MG TAB PO SCH (08:52)
[2016-07-31] MEDS: BENZONATATE 100MG CAP PO SCH ×3 (08:52→20:21)
[2016-07-31] MEDS: METHYLPREDNISOLONE IV 40 MG in SYRINGE 0 ML IV SCH ×2 (08:52→22:00)
[2016-07-31] MEDS: HEPARIN SOD 5000 UNIT/0.5 ML CARP SQ SCH ×2 (08:53→20:22)
[2016-07-31] MEDS ORDERED: LEVOFLOXACIN / D5W 750 MG in PREMIXED IN D5W 150 ML IV SCH (11:00)
[2016-07-31 13:37] LABS: CKMB/CK RATIO 2.2 (0-3.0)
--- NOTE | 2016-07-31 13:42 | ECHOCARDIOGRAM REPORT ---
*NOTICE TO RECEIVING DEMOCRAT AGENCY This information is strictly Confidential and protected under [place] law. [place] law prohibits you from making any further disclosure of this information unless further disclosure is expressly permitted by the written consent of the person to whom it pertains or is authorized by law. A general authorization for the release of medical or other information is not sufficient for this purpose. Hospital accepts no responsibility if the information is made available to any other person, INCLUDING THE PATIENT. Interpretation Summary * Name: BON WEINSTEIN Study Date: 07/31/2016 07:08 AM BP: 114/69 mmHg * Patient Location: C.2T\S\S238\S\2 HR: 89 * : 1930 (M/d/yyy) Gender: Female Height: 52 in * Age: 86 yrs Ethnicity: [place] Weight: 154 lb * Ordering Physician: Vannessa Baker * Performed By: Sharon Spencer * * Reason For Study: A-FIB * BSA: 1.5 m2 * -- Conclusions -- * Left ventricular systolic function is normal. * No regional wall motion abnormalities noted. * Ejection Fraction = 65-70%. * There is mild concentric left ventricular hypertrophy. * Diastolic dysfunction is suggested. * There is mild to moderate tricuspid regurgitation. Procedure Details * A complete two-dimensional transthoracic echocardiogram was performed (2D, M-mode, Doppler and color flow Doppler). Left Ventricle * The left ventricle is normal in size. * There is mild concentric left ventricular hypertrophy. * Ejection Fraction = 65-70%. * Left ventricular systolic function is normal. * No regional wall motion abnormalities noted. Right Ventricle * The right ventricle is grossly normal size. * The right ventricular systolic function is normal as assessed by tricuspid annular plane systolic excursion (TAPSE) (normal >1.5 cm). Atria * The left atrium is mildly dilated. * Right atrial size is normal. * No ASD detected; PFO is not assessed. Mitral Valve * The mitral valve is grossly normal. * There is no mitral valve stenosis. * Significant mitral regurgitation is absent. Tricuspid Valve * The tricuspid valve anatomy is normal. * There is no tricuspid stenosis. * There is mild to moderate tricuspid regurgitation. Aortic Valve * The aortic valve is trileaflet. * The aortic valve opens well. * Aortic valve sclerosis mild, without significant aortic valvular stenosis. * No aortic regurgitation is present. Pulmonic Valve * The pulmonary valve is not well seen, but the Doppler examination is normal without significant regurgitation or stenosis. Great Vessels * The aortic root is normal size. * The pulmonary is not well visualized. Pericardium/Pleural * There is no pericardial effusion. Great Vessels * Normal inferior vena cava size and collapsability with sniff indicates a normal right atrial pressure of 3 mmHg Left Ventricular Diastolic Function * Diastolic dysfunction is suggested. MMode 2D Measurements and Calculations IVSd 1.3 cm IVSs 2.2 cm LVIDd 4.2 cm LVIDs 2.9 cm LVPWd 1.2 cm LVPWs 1.7 cm IVS/LVPW 1.1 FS 29.7 % EDV(Teich) 78.0 ml ESV(Teich) 33.4 ml EF(Teich) 57.1 % EDV(cubed) 73.4 ml ESV(cubed) 25.5 ml EF(cubed) 65.2 % % IVS thick 76.3 % % LVPW thick 45.1 % LV mass(C)d 181.5 grams LV mass(C)dI 120.5 grams/m\S\2 LV mass(C)s 249.9 grams LV mass(C)sI 165.9 grams/m\S\2 SV(Teich) 44.6 ml SI(Teich) 29.6 ml/m\S\2 SV(cubed) 47.9 ml SI(cubed) 31.8 ml/m\S\2 ACS 1.5 cm LA dimension 4.1 cm asc Aorta Diam 3.1 cm LVOT diam 1.7 cm LVOT area 2.3 cm\S\2 LVAd ap4 18.9 cm\S\2 LVLd ap4 6.2 cm EDV(MOD-sp4) 47.1 ml EDV(sp4-el) 48.4 ml LVAs ap4 11.1 cm\S\2 LVLs ap4 5.3 cm ESV(MOD-sp4) 19.0 ml ESV(sp4-el) 19.4 ml EF(MOD-sp4) 59.6 % EF(sp4-el) 59.9 % LVAd ap2 18.9 cm\S\2 LVLd ap2 6.4 cm EDV(MOD-sp2) 46.0 ml EDV(sp2-el) 47.3 ml LVAs ap2 9.7 cm\S\2 LVLs ap2 5.3 cm ESV(MOD-sp2) 15.7 ml ESV(sp2-el) 15.1 ml EF(MOD-sp2) 65.8 % EF(sp2-el) 68.0 % LVLd %diff 2.5 % EDV(MOD-bp) 47.1 ml LVLs %diff -1.24 % ESV(MOD-bp) 16.9 ml EF(MOD-bp) 64.0 % SV(MOD-sp4) 28.1 ml SI(MOD-sp4) 18.6 ml/m\S\2 SV(MOD-sp2) 30.3 ml SI(MOD-sp2) 20.1 ml/m\S\2 SV(MOD-bp) 30.1 ml SI(MOD-bp) 20.0 ml/m\S\2 SV(sp4-el) 29.0 ml SI(sp4-el) 19.3 ml/m\S\2 SV(sp2-el) 32.1 ml SI(sp2-el) 21.3 ml/m\S\2 Doppler Measurements and Calculations MV E max linda 134.8 cm/sec MV A max linda 122.9 cm/sec MV E/A 1.1 MV dec time 0.28 sec Ao V2 max 173.0 cm/sec Ao max PG 12.0 mmHg Ao max PG (full) 5.5 mmHg NAHID(V,A) 1.7 cm\S\2 NAHID(V,D) 1.7 cm\S\2 LV V1 max PG 6.5 mmHg LV V1 max 127.3 cm/sec PA V2 max 78.7 cm/sec PA max PG 2.5 mmHg PI end-d linda 103.6 cm/sec TR max linda 295.4 cm/sec
[2016-07-31] MEDS ORDERED: COUGH DROP (SUGAR FREE) LOZ 24 LOZ/1 BOX ONE (14:48)
[2016-07-31] MEDS: ASPIRIN 81 MG ECTAB PO SCH (20:20)
[2016-07-31] MEDS: DONEPEZIL HCL 10 MG TAB PO SCH (20:20)
--- NOTE | 2016-07-31 20:58 | Hospitalist Progress Note ---
Hospitalist Progress Note Date of Service Jul 31, 2016. Subjective Pt evaluation today including: conversation w/ patient, conversation w/ family Patient feeling much better today. Still coughing but overall improved. No more atrial fibrillation on the monitor but did have a few salvos of atrial tachycardia Constitutional: No fever Respiratory: + cough, No shortness of breath Cardiovascular: No chest pain Abdomen: No diarrhea, No nausea (he is) All Other Systems: Reviewed and Negative Objective Vital Signs Date Time Temp Pulse Resp B/P Pulse Ox O2 Delivery O2 Flow Rate FiO2 07/31/16 20:05 82 16 93 Room Air 07/31/16 19:36 36.4 81 20 113/65 95 Room Air 07/31/16 16:00 Room Air 07/31/16 15:55 36.7 90 18 102/51 92 Room Air 07/31/16 14:12 102 16 92 Room Air 07/31/16 12:00 Room Air 07/31/16 11:35 36.5 86 20 132/77 96 Room Air 07/31/16 08:00 Room Air 07/31/16 07:55 36.6 82 20 118/68 94 Room Air 07/31/16 07:33 81 16 93 Room Air 07/31/16 04:27 36.6 79 18 101/51 95 Room Air 07/31/16 04:00 Room Air 07/31/16 02:28 86 14 95 Room Air 07/31/16 00:01 Room Air 07/30/16 23:42 36.8 79 20 111/60 94 Room Air Physical Exam General Appearance: WD/WN, no apparent distress Eyes: normal inspection, sclerae normal ENT: + pertinent finding (hard of hearing) Neck: trachea midline Respiratory/Chest: no respiratory distress, no accessory muscle use, + crackles (as mostly at left base and left middle lung field) Cardiovascular: regular rate, rhythm, no edema, no gallop, no murmur Abdomen: normal bowel sounds, non tender, soft Extremities: non-tender, no pedal edema, no calf tenderness Neurologic/Psychiatric: alert, normal mood/affect Skin: normal color, warm/dry, no rash Laboratory Results Last 24 Hours Test 07/31/16 00:45 07/31/16 06:36 07/31/16 06:56 07/31/16 12:55 Total Creatine Kinase 360 U/L 264 U/L 332 U/L Creatine Kinase MB 9.1 ng/ml 7.6 ng/ml 7.4 ng/ml Creatine Kinase MB Ratio 2.5 2.9 2.2 Troponin I 0.042 ng/ml 0.033 ng/ml 0.035 ng/ml Sodium Level 140 mmol/L Potassium Level 4.3 mmol/L Chloride Level 106 mmol/L Carbon Dioxide Level 27 mmol/L Anion Gap 7.0 mmol/L Blood Urea Nitrogen 29 mg/dl Creatinine 0.78 mg/dl Est Creatinine Clear Calc Drug Dose 47.7 ml/min Estimated GFR () 79.8 Estimated GFR (Non- 68.8 BUN/Creatinine Ratio 37.4 Random Glucose 174 mg/dl Calcium Level 9.3 mg/dl Magnesium Level 2.7 mg/dl White Blood Count 25.50 K/uL Red Blood Count 4.53 M/uL Hemoglobin 14.2 g/dL Hematocrit 41.8 % Mean Corpuscular Volume 92.3 fL Mean Corpuscular Hemoglobin 31.3 pg Mean Corpuscular Hemoglobin Concent 34.0 g/dl Platelet Count 227 K/uL Mean Platelet Volume 10.8 fL Neutrophils (%) (Auto) 61.4 % Lymphocytes (%) (Auto) 35.8 % Monocytes (%) (Auto) 2.3 % Eosinophils (%) (Auto) 0.0 % Basophils (%) (Auto) 0.1 % Neutrophils # (Auto) 15.68 K/uL Lymphocytes # (Auto) 9.12 K/uL Monocytes # (Auto) 0.58 K/uL Eosinophils # (Auto) 0.00 K/uL Basophils # (Auto) 0.02 K/uL RDW Standard Deviation 49.0 fL RDW Coefficient of Variation 14.4 % Immature Granulocyte % (Auto) 0.4 % Immature Granulocyte # (Auto) 0.10 K/uL Smudge Cells PRESENT Assessment and Plan 86-year-old female here with acute hypoxemic respiratory failure and community- acquired pneumonia, with new onset rapid atrial fibrillation. Rapid atrial fibrillation-in the setting of acute pneumonia and respiratory failure. Resolved and she was asymptomatic. No indication for anticoagulation at this point. Appreciate cardiology input-we'll hold off on starting any by mouth AV nila blockers at this time and continues by mouth Cardizem on a when necessary basis if she returns to rapid atrial fibrillation -Replace electrolytes as needed ECHO: * Left ventricular systolic function is normal. * No regional wall motion abnormalities noted. * Ejection Fraction = 65-70%. * There is mild concentric left ventricular hypertrophy. * Diastolic dysfunction is suggested. * There is mild to moderate tricuspid regurgitation. LLL community-acquired pneumonia-clinically improving, has weaned off of oxygen -Continue Levaquin and bronchodilators -Can likely discharge back to home tomorrow on 10 day course of by mouth Levaquin Acute bronchitis -Continue solu-medrol 40mg q12h. Duonebs q6h. Incentive spirometry. Mucinex. O2 as needed. Elevated Trop-trending down. Asymptomatic-demand ischemia from rapid atrial fibrillation-resolved -Continue telemetry monitoring for now hypothyroidism - TSH last month was normal -Cont Synthroid. Dementia-stable -cont aricept. CLL-WBCs elevated secondary to above/steroids Baseline 14-16. -follow CBC DVT proph -heparin BID. CODE STATUS -LEVEL I FULL CODE DISPO -PT/OT eval recommends discharge to home with family. Patient lives at home with her . She ambulates without difficulty. She does have family close by if she needs help. Plan on discharge home tomorrow
[2016-08-01] VITALS (7 sets, daily range): BP systolic 124–145; BP diastolic 56–80; PULSE 74–89; TEMP 36.6–36.8; O2SAT 93–95
[2016-08-01] MEDS: LEVALBUTEROL 1.25MG/0.5ML NEB INH SCH (02:19)
[2016-08-01] MEDS: IPRATROPIUM BROMIDE NEB SOLN 0.02% 2.5 ML VIAL INH SCH (02:19)
[2016-08-01] MEDS: LEVOTHYROXINE 88 MCG TAB PO SCH (05:37)
[2016-08-01 06:57] LABS: HEMATOCRIT 41.2 % (37-47); MEAN CELL VOLUME 92.2 fL (80-100); MEAN CORPUSCULAR HEMOGLOBIN 30.6 pg (25-34); MEAN CORPUSCULAR HGB CONC 33.3 g/dl (32-36); MEAN PLATELET VOLUME 10.4 fL (7.4-10.4); PLATELET COUNT 246 K/uL (130-400); RED BLOOD COUNT 4.47 M/uL (4.2-5.4); WHITE BLOOD COUNT 23.48 K/uL (4.8-10.8)
[2016-08-01 07:36] LABS: BUN/CREATININE RATIO 30.8 (10-20); CALCIUM 8.9 mg/dl (8.5-10.1); CREATININE 0.79 mg/dl (0.60-1.20); POTASSIUM 4.2 mmol/L (3.5-5.1)
[2016-08-01] MEDS: FUROSEMIDE 20 MG TAB PO SCH (07:40)
[2016-08-01] MEDS: GUAIFENESIN 600 MG TABCR PO SCH (07:40)
[2016-08-01] MEDS: BENZONATATE 100MG CAP PO SCH (07:41)
[2016-08-01 07:44] LABS: BASO % 0.1 %; BASO ABS # 0.03 K/uL (0-0.2); COMPLETE YES; IG% 0.8 %; LYMPH ABS # 11.27 K/uL (1.2-3.4); MONO % 2.7 %; NEUT % 48.4 %; SMUDGE CELLS PRESENT
[2016-08-01] MEDS: HEPARIN SOD 5000 UNIT/0.5 ML CARP SQ SCH (07:45)
[2016-08-01] MEDS: METHYLPREDNISOLONE IV 40 MG in SYRINGE 0 ML IV SCH (10:02)
[2016-08-01] MEDS ORDERED: GFNSR600 PO (11:48)
[2016-08-01] MEDS ORDERED: PRD20 PO (11:48)
[2016-08-01] MEDS ORDERED: LEVO1TAB35 PO (11:48)
[2016-08-01] MEDS ORDERED: BENZ100C7 PO (11:48)
--- NOTE | 2016-08-01 13:03 | Discharge Instructions ---
Discharge Instructions Date of Service Aug 01, 2016. Admission Reason for Admission: Acute Respiratory Failure With Hypoxia, Pneumonia Discharge Discharge Diagnosis / Problem: Acute Respiratory Failure With Hypoxia, Pneumonia,Atrial fibrillation Discharge Goals Goal(s): Improve disease control, Diagnostic testing, Therapeutic intervention Activity Recommendations Activity Limitations: as noted below Exercise/Sports Limitations: gradually increase as tolerated Shower/Bathe: no limitations . Instructions / Follow-Up Instructions / Follow-Up You were admitted with pneumonia. You were treated with antibiotics and steroids to reduce inflammation and cough. You were not requiring any oxygen prior to discharge. Please follow up with your primary care doctor within 1-2 weeks. You will need a repeat chest xray in 3-4 weeks to make sure your pneumonia has completely cleared. If you start feeling worse again, worsening shortness of breath, develop chest pain or fevers, please return to the hospital. You also had onset of rapid atrial fibrillation (rapid irregular heartbeat) while you were here. This resolved fairly quickly and was likely related to your pneumonia causing strain on your heart. You were evaluated by the Blow Pit Operator and it is felt that you do not need to go on any new medication or blood thinners for this. If you develop chest pain or lightheadedness or heart palpitations, please call your doctor or go to the hospital. Current Hospital Diet Patient's current hospital diet: Regular Diet Discharge Diet Recommended Diet: Regular Diet Procedures Procedures Performed: Chest xray Pending Studies Studies pending at discharge: no Laboratory Results Lipid Panel Test 06/30/16 09:18 Range/Units Triglycerides Level 107 0-150 mg/dl Cholesterol Level 217 H 0-200 mg/dl HDL Cholesterol 60 mg/dl Cholesterol/HDL Ratio 3.6 LDL Cholesterol, Calculated 136 mg/dl Medical Emergencies . Who to Call and When: Medical Emergencies: If at any time you feel your situation is an emergency, please call 911 immediately. . Non-Emergent Contact Non-Emergency issues call your: Primary Care Provider Call Non-Emergent contact if: you have a fever, you have any medication questions . . "Provider Documentation" section prepared by Lulú Don. . VTE Core Measure Inpt VTE Proph given/why not?: Unfractionated heparin SQ
--- NOTE | 2016-08-01 18:23 | Discharge Summary ---
Discharge Summary Date of Service Aug 01, 2016. Discharge Summary Admission Date: Jul 29, 2016 at 11:47 Discharge Date: Aug 01, 2016 Discharge Disposition: Home with services Principal Diagnosis: community-acquired pneumonia Problems/Secondary Diagnoses: Acute hypoxemic respiratory failure Rapid atrial fibrillation Chronic diastolic CHF Mild to moderate tricuspid regurgitation. Demand myocardial ischemia Hypothyroidism Dementia CLL Immunizations: Have You Had Influenza Vaccine: Yes History of Tetanus Vaccine?: Yes History of Pneumococcal: Yes History of Hepatitis B Vaccine: No Procedures: Echocardiogram: * Left ventricular systolic function is normal. * No regional wall motion abnormalities noted. * Ejection Fraction = 65-70%. * There is mild concentric left ventricular hypertrophy. * Diastolic dysfunction is suggested. * There is mild to moderate tricuspid regurgitation. Chest x-ray: 1. There is patchy airspace consolidation at the left lung base. Cortical clinically for evidence of pneumonia/aspiration pneumonitis. Radiographic follow-up to resolution is recommended. 2. Cardiomegaly without radiographic evidence of congestive failure. Consultations: Cardiology Medication Reconciliation New Medications: Levofloxacin (Levaquin) 750 Mg Tab 750 MG PO Q2D for 6 Days, #3 TAB next dose due 08/02/16 Prednisone (Prednisone) 20 Mg Tab 40 MG PO DAILY, #6 TAB x 2 days then 20mg daily x 2 days then stop Benzonatate (Benzonatate) 100 Mg Cap 100 MG PO TID, #20 CAP Guaifenesin Ext Rel (Mucinex Ext Rel) 600 Mg Tabcr 600 MG PO Q12 for 7 Days OTC Continued Medications: Aspirin (Aspirin Chewable) 81 Mg Chew 81 MG PO HS Donepezil Hydrochloride (Aricept) 10 Mg Tab 10 MG PO HS Furosemide (Lasix) 20 Mg Tab 20 MG PO DAILY AFTER LUNCH Levothyroxine Sodium (Levothyroxine Sodium) 88 Mcg Tab 1 TAB PO QAM Discontinued Medications: Hydrocodone/Acetaminophen 5MG/325MG (Moore 5MG/325MG) Tab 1-2 TABLET PO q 6 hrs PRN for Pain, #20 TAB PRN PAIN Referrals At Discharge Follow up Referrals: Physician Referral - Within 1-2 Weeks with Georgi Gregory M.D. Discharge Exam Patient doing very well. She has minimal cough and denies any shortness of breath. Oximetry with exercise with a gavin pulse ox of 91%; she therefore did not require home oxygen. Physical Exam General Appearance: WD/WN, no apparent distress Eyes: normal inspection, sclerae normal ENT: + pertinent finding (hard of hearing) Neck: trachea midline Respiratory/Chest: no respiratory distress, no accessory muscle use, + crackles (as mostly at left base and left middle lung field) Cardiovascular: regular rate, rhythm, no edema, no gallop, no murmur Abdomen: normal bowel sounds, non tender, soft Extremities: non-tender, no pedal edema, no calf tenderness Neurologic/Psychiatric: alert, normal mood/affect Skin: normal color, warm/dry, no rash Review of Systems: Constitutional: No fever Eyes: No problem reported ENT: No problem reported Respiratory: No dyspnea on exertion, No shortness of breath Cardiovascular: No chest pain Abdomen: No diarrhea, No nausea, No pain, No vomiting Musculoskeletal: No problem reported Genitourinary - Female: No problem reported Neurologic: No problem reported Psychiatric: No problem reported Endocrine: No problem reported Hematologic / Lymphatic: No problem reported Integumentary: No problem reported Hospital Course 86-year-old female here with acute hypoxemic respiratory failure and community- acquired pneumonia, with new onset rapid atrial fibrillation. Rapid atrial fibrillation-in the setting of acute pneumonia and respiratory failure. Resolved and she was asymptomatic. No indication for anticoagulation at this point. Appreciate cardiology input-we'll hold off on starting any by mouth AV nila blockers at this time and continues by mouth Cardizem on a when necessary basis if she returns to rapid atrial fibrillation -Replaced electrolytes as needed ECHO: * Left ventricular systolic function is normal. * No regional wall motion abnormalities noted. * Ejection Fraction = 65-70%. * There is mild concentric left ventricular hypertrophy. * Diastolic dysfunction is suggested. * There is mild to moderate tricuspid regurgitation. LLL community-acquired pneumonia-clinically improving, has weaned off of oxygen -Received IV Levaquin and bronchodilators -We will discharge back to home on 10 day course of by mouth Levaquin -Received IV solu-medrol , Duonebs q6h. Incentive spirometry. Mucinex. -We'll do short prednisone taper upon discharge Demand myocardial ischemia in the setting of rapid atrial fibrillation- Asymptomatic--resolved -Only a few short runs of atrial tachycardia throughout remainder of stay hypothyroidism - TSH last month was normal -Cont Synthroid. Dementia-stable -cont aricept. CLL-WBCs elevated secondary to above/steroids Baseline 14-16. -follow CBC DVT proph -heparin BID. CODE STATUS -LEVEL I FULL CODE DISPO -PT/OT lisbetal recommends discharge to home with family. Patient lives at home with her . She ambulates without difficulty. She does have family close by if she needs help. Plan on discharge home today Total Time Spent: Greater than 30 minutes This includes examination of the patient, discharge planning, medication reconciliation, and communication with other providers. Discharge Instructions Please refer to the electronic Patient Visit Report (Discharge Instructions) for additional information. Follow-Up With PCP within one week Additional Copies To Georgi Gregory M.D.
== END 2016-08-01 13:43 | disposition home or self-care (01) | DRG 193 ==
LOC: ENRESERVTM → ENRESERVDT → C.EDB 09:35 → C.MED 11:47 → C.2T 07-30 13:09
PROVIDERS: ADMIT Internal Medicine; ATTEND Family Medicine
DX: J18.9 Pneumonia, unspecified organism (principal); J96.01 Acute respiratory failure with hypoxia; C91.10 Chronic lymphocytic leukemia of B-cell type not having achieved remission; I24.8 Other forms of acute ischemic heart disease; I50.32 Chronic diastolic (congestive) heart failure; J20.9 Acute bronchitis, unspecified; I48.91 Unspecified atrial fibrillation; E03.9 Hypothyroidism, unspecified; I34.0 Nonrheumatic mitral (valve) insufficiency; F03.90 Unspecified dementia, unspecified severity, without behavioral disturbance, psychotic disturbance, mood disturbance, and anxiety; Z79.82 Long term (current) use of aspirin; Z79.899 Other long term (current) drug therapy

== ENCOUNTER → 2016-08-16 | Outpatient (CLI) | payer OTHER ==
[~2016-08-16] MED LIST changes: +BENZ100C7 PO; -CYAN100020 PO; +GFNSR600 PO; -HYDR-5688 PO; +PRD20 PO
--- NOTE | 2016-08-16 12:47 | DIAGNOSTIC IMAGING REPORT ---
CHEST 2 VIEWS ROUTINE CLINICAL HISTORY: J18.9 CAP (community acquired pneumonia)[id number] COMPARISON STUDY: 07/29/2016 FINDINGS: The cardiac and mediastinal contours are normal. There is no evidence of focal pulmonary consolidation. There is no evidence of failure. No pleural effusions are visualized.[ There is minor linear scarring/atelectasis at the left lung base. IMPRESSION: No active disease in the chest. Electronically signed by: Angelo Abel M.D. 08/16/2016 12:46 PM Dictated Date/Time: 08/16/2016 12:45 PM
== END | disposition home or self-care (01) ==
LOC: C.RADBC 12:21
PROVIDERS: ATTEND Physician Assistant Medical
DX: J18.9 Pneumonia, unspecified organism (principal)

== ENCOUNTER → 2017-01-11 | Outpatient (CLI) | payer OTHER ==
[2017-01-11 17:47] LABS: HEMATOCRIT 44.1 % (37-47); MEAN CELL VOLUME 93.6 fL (80-100); MEAN CORPUSCULAR HEMOGLOBIN 31.4 pg (25-34); MEAN CORPUSCULAR HGB CONC 33.6 g/dl (32-36); MEAN PLATELET VOLUME 10.8 fL (7.4-10.4); PLATELET COUNT 271 K/uL (130-400); RED BLOOD COUNT 4.71 M/uL (4.2-5.4); WHITE BLOOD COUNT 14.77 K/uL (4.8-10.8)
[2017-01-11 17:57] LABS: ALT/SGPT 20 U/L (12-78); BLOOD UREA NITROGEN 22 mg/dl (7-18); BUN/CREATININE RATIO 23.6 (10-20); CALCIUM 9.5 mg/dl (8.5-10.1); CARBON DIOXIDE 30 mmol/L (21-32); CHLORIDE 106 mmol/L (98-107); CHOLESTEROL 208 mg/dl (0-200); CREATININE 0.92 mg/dl (0.60-1.20); GLUCOSE 81 mg/dl (70-99); POTASSIUM 4.2 mmol/L (3.5-5.1); SODIUM 142 mmol/L (136-145)
[2017-01-11 18:07] LABS: ALB/GLOB RATIO 1.1 (0.9-2); ALKALINE PHOSPHATASE 90 U/L (45-117); AST/SGOT 20 U/L (15-37); CHOLESTEROL/HDL RATIO 3.1; HDL CHOLESTEROL 67 mg/dl; LDL CHOLESTEROL CALCULATED 110 mg/dl; TRIGLYCERIDES 155 mg/dl (0-150); VERY LOW DENSITY LIPOPROT CALC 31 mg/dl
[2017-01-11 18:34] LABS: BASO % 0.3 %; BASO ABS # 0.04 K/uL (0-0.2); COMPLETE YES; EOS % 2.3 %; IG% 0.2 %; LYMPH % 45.4 %; LYMPH ABS # 6.71 K/uL (1.2-3.4); MONO % 6.8 %; SMUDGE CELLS PRESENT
[2017-01-12 07:46] LABS: ESTIMATED AVERAGE GLUCOSE 123 mg/dl; HA1C FLAG Normal (Normal)
== END | disposition home or self-care (01) ==
LOC: C.LABBFT 14:28
PROVIDERS: ATTEND Physician Assistant Medical
DX: R73.01 Impaired fasting glucose (principal); E53.8 Deficiency of other specified B group vitamins

== ENCOUNTER → 2017-01-19 | Outpatient (CLI) | payer OTHER ==
--- NOTE | 2017-01-20 07:48 | MAMMOGRAPHY REPORT ---
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 She does not believe she had radiation therapy. The patient denies any current complaints. Remote history of left breast cancer status post treatment. TECHNIQUE: Breast tomosynthesis in addition to standard 2D mammography was performed. Bilateral CC and MLO 2-D and tomosynthesis images were obtained. COMPARISON: Comparison is made to exams dated: 03/09/2016 specimen, 03/09/2016 localization, 6 mammogram, 02/02/2016 ultrasound biopsy, 01/20/2016 ultrasound, and 01/20/2016 mammogram - [facility]. BREAST COMPOSITION: There are scattered areas of fibroglandular density in both breasts. FINDINGS: There are new post surgical changes in the right subareolar breast from prior excision whi ch yielded papillary carcinoma. A linear scar marker denotes a scar on the right anterior breast. T here are no suspicious masses, calcifications, or areas of architectural distortion noted in either b reast. There has been no significant interval change compared to prior exams. There are stable post surgical changes in the left breast. Scattered bilateral benign-appearing calcifications are not sig nificantly changed. IMPRESSION: ACR-BI-RADS CATEGORY 3: PROBABLY BENIGN New post surgical changes in the right breast status post lumpectomy, without mammographic evidence o f malignancy in either breast. Recommend follow-up diagnostic tomosynthesis mammograms of the right breast in 6 months to reevaluate post treatment changes. The patient has been verbally notified of the results. Approximately 10% of breast cancers are not detected with mammography. A negative mammographic report should not delay biopsy if a clinically suggestive mass is present. Ade Kelly M.D. /:01/19/2017 10:55:17 Fire Support Specialist: Taryn MELÉNDEZ)(Marcel), [facility] letter sent: Personal History 3 BI-RADS Code: ACR-BI-RADS Category 3: Probably Benign
== END | disposition home or self-care (01) ==
LOC: C.MAMM 10:22
PROVIDERS: ATTEND Internal Medicine
DX: N63.10 Unspecified lump in the right breast, unspecified quadrant (principal)

== ENCOUNTER → 2017-07-20 | Outpatient (CLI) | payer BC ==
[2017-07-20 16:28] LABS: HEMATOCRIT 44.9 % (37-47); HEMOGLOBIN 14.8 g/dL (12.0-16.0); MEAN CELL VOLUME 94.5 fL (80-100); MEAN CORPUSCULAR HEMOGLOBIN 31.2 pg (25-34); MEAN PLATELET VOLUME 10.9 fL (7.4-10.4); PLATELET COUNT 244 K/uL (130-400); RED CELL DISTRIBUTION WIDTH CV 14.6 % (11.5-14.5); RED CELL DISTRIBUTION WIDTH SD 50.6 fL (36.4-46.3); WHITE BLOOD COUNT 14.88 K/uL (4.8-10.8)
[2017-07-21 08:05] LABS: HEMOGLOBIN A1C 5.6 % (4.5-5.6)
== END | disposition home or self-care (01) ==
LOC: C.LABBFT 13:45
PROVIDERS: ATTEND Internal Medicine
DX: C91.90 Lymphoid leukemia, unspecified not having achieved remission (principal); R73.01 Impaired fasting glucose; E03.9 Hypothyroidism, unspecified

== ENCOUNTER → 2017-07-21 | Outpatient (CLI) | payer BC ==
--- NOTE | 2017-07-21 14:56 | MAMMOGRAPHY REPORT ---
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 The patient reports no current complaints. TECHNIQUE: Breast tomosynthesis in addition to standard 2D mammography was performed. Current study was also evaluated with a Computer Aided Detection (CAD) system. Right CC and MLO 2D and tomosynthes is images and spot magnification right CC and ML views were obtained. COMPARISON: Comparison is made to exams dated: 01/19/2017 mammogram, 03/09/2016 specimen, 03/09/2016 l ocalization, 02/02/2016 mammogram, 02/02/2016 ultrasound biopsy, and 01/20/2016 ultrasound - [facility]. BREAST COMPOSITION: There are scattered areas of fibroglandular density in the right breast. FINDINGS: There are stable post surgical changes in the right subareolar breast from prior lumpectomy . A linear scar marker denotes a scar on the right anterior breast. There are no suspicious masses, calcifications, or areas of architectural distortion noted in the right breast. IMPRESSION: ACR-BI-RADS CATEGORY 3: PROBABLY BENIGN Stable postsurgical changes in the right breast, without mammographic evidence of malignancy in the r ight breast. Recommend bilateral diagnostic tomosynthesis mammograms in 6 months to reevaluate right breast post surgical changes and for routine mammography of the left breast. The patient has been verbally notified of the results. Approximately 10% of breast cancers are not detected with mammography. A negative mammographic report should not delay biopsy if a clinically suggestive mass is present. Ade Kelly M.D. /:07/21/2017 10:29:40 Slip Dumper: Sakina Gordon, [facility] letter sent: Personal History 3 BI-RADS Code: ACR-BI-RADS Category 3: Probably Benign
== END | disposition home or self-care (01) ==
LOC: C.MAMM 09:49
PROVIDERS: ATTEND Internal Medicine
DX: Z85.3 Personal history of malignant neoplasm of breast (principal)